=== PATIENT | female | born 2000 | race Caucasian/White ===

== ENCOUNTER → 2021-01-10 | Outpatient (CLI) | payer OTHER ==
--- NOTE | 2021-01-10 18:12 | US ---
EXAMINATION TYPE: US transvaginal DATE OF EXAM: 01/10/2021 COMPARISON: NONE CLINICAL HISTORY: N93.9 abn uterine bleeding. irregular bleeding. TECHNIQUE: Transvaginal (TV) Date of LMP: 01/02/2021, G0 EXAM MEASUREMENTS: Uterus: 7.4 x 3.8 x 2.8 cm Endometrial Stripe: 0.2 cm Right Ovary: 2.8 x 1.5 x 1.5 cm Left Ovary: 2.6 x 1.8 x 1.3 cm 1. Uterus: Anteverted wnl 2. Endometrium: wnl 3. Right Ovary: wnl 4. Left Ovary: wnl 5. Bilateral Adnexa: wnl 6. Posterior cul-de-sac: no free fluid Cervix- fluid seen in cervical canal IMPRESSION: Nonspecific trace fluid within the cervical canal. Otherwise no acute abnormality.
== END | disposition home or self-care (01) ==
LOC: LABWHC1 16:07
PROVIDERS: ATTEND Family Medicine
DX: N93.9 Abnormal uterine and vaginal bleeding, unspecified (principal)
CPT/HCPCS: 76830